=== PATIENT | male | born 1940 | race Caucasian/White ===

== ENCOUNTER 2017-10-29 12:04 | Emergency (ER) | payer MEDICARE, OTHER, SELFPAY ==
[2017-10-29] VITALS (14 sets, daily range): BP systolic 85–111; BP diastolic 40–83; PULSE 81–99; RESP 12–22; TEMP 35.7–36.9; O2SAT 95–100; BMI 30.7
[2017-10-29 12:24] LABS: Add Manual Diff / Slide Review NO; Basophils Percent Auto 0.6 % (0-2); Eosinophils Percent Auto 2.1 % (2-4); Hematocrit 39.3 % (41-53); Hemoglobin 13.4 g/dL (13.5-17.5); Lymphocytes Percent Auto 11.4 % (25-40); Mean Corpuscular HGB Conc 34.2 % (30-36); Mean Corpuscular Hemoglobin 32.4 PG (26-34); Mean Corpuscular Volume 94.8 fL (80-100); Monocytes Percent Auto 9.1 % (3-14); Neutrophils Absolute Auto 8300 /uL (3000-5900); Neutrophils Percent Auto 76.8 % (50-75); Platelet Count 228 X10^3/uL (150-400); Red Blood Cell Count 4.15 X10^6/uL (4.5-5.9); Red Cell Distribution Width 13.6 % (11.6-14.8); White Blood Cell Count 10.8 X10^3/uL (4.5-11.0)
[2017-10-29 12:29] LABS: PTT Partial Thromboplastin Tim 44 SECONDS (26.4-36.2)
[2017-10-29 12:30] LABS: Alanine Aminotransferase 41 IU/L (21-72); Albumin 3.5 g/dL (3.5-5.0); Albumin Globulin Ratio 1.3 (1.0-2.8); Alkaline Phosphatase 61 U/L (38-126); Aspartate Aminotransferase 21 IU/L (17-59); BUN Creatinine Ratio 19.1 (6-22); Bilirubin Total 0.8 mg/dL (0.2-1.3); Blood Urea Nitrogen 21 mg/dL (9-20); Calcium 8.5 mg/dL (8.4-10.2); Carbon Dioxide 29 mmol/L (22-32); Chloride 102 mmol/L (98-107); Creatine Kinase 58 U/L (55-170); Estimated Glomerular Filt Rate > 60.0 mL/min (>60); Globulin 2.7 g/dL (1.7-4.1); Glucose 148 mg/dL (80-110); HEMOLYSIS < 15 (0-50); Lipase 55 U/L (23-300); Potassium 4.3 mmol/L (3.4-5.1); Sodium 138 mmol/L (137-145); Total Protein 6.2 g/dL (6.3-8.2)
[2017-10-29 12:32] LABS: Prothrombin Time 53.5 SECONDS (10.1-12.7)
--- NOTE | 2017-10-29 12:39 | ED.SYNCOPE ---
HPI - Syncope General Chief Complaint: Syncope Stated Complaint: Abdominal Pain / Syncopal Time Seen by Provider: 10/29/17 12:52 Source: patient and EMS Mode of arrival: EMS Limitations: no limitations History of Present Illness HPI narrative: Patient is a 77-year-old male who presents with all syncopal episode at his doctor's office. He was initially being seen for left lower quadrant pain. The pain hurts every time he moves. It has been ongoing for the last 1 or 2 days. History he was able to mow the lawn but he was quickly fatigued. He has had some diarrhea but it is not bloody. On the doctor's office today a position of comfort with lying flat. At that time he got nauseous and vomited once. He then apparently passed out and had a shaking episode for about 15 sec. At no time did he lose consciousness nor was he postictal. He was sent to the ED for further evaluation. He denies any chest pain heart palpitations or fever. MD complaint: almost passed out Witnessed: yes - by bystander (Provider in [place]) Related Data Home Medications Medication Instructions Recorded Confirmed diltiazem HCl 1 cap PO DAILY 10/29/17 10/29/17 levobunolol 1 drp OPHTHALMIC (EYE) DAILY 10/29/17 10/29/17 levothyroxine 1 tab PO DAILY 10/29/17 10/29/17 lovastatin 20 mg PO QPM 10/29/17 10/29/17 metoprolol tartrate 25 mg PO BID 10/29/17 10/29/17 tamsulosin 0.8 mg PO QPM 10/29/17 10/29/17 warfarin [Jantoven] 1 mg PO QPM 10/29/17 10/29/17 warfarin [Jantoven] 5 mg PO QPM 10/29/17 10/29/17 Allergies Allergy/AdvReac Type Severity Reaction Status Date / Time No Known Drug Allergies Allergy Verified 10/29/17 12:14 Review of Systems Review of Systems All systems reviewed & are unremarkable except as noted in HPI and below Cardiovascular Reports as per HPI, Reports system reviewed and no additional complaints, except as docu and Reports syncope Gastrointestinal Gastrointestinal: Reports as per HPI, Reports system reviewed and no additional complaints, except as docu and Reports abdominal pain Musculoskeletal Denies back pain, Denies muscle weakness, Denies numbness and Denies tingling Integumentary/Breasts Denies pruritus, Denies erythema, Denies rash and Denies wounds Neurologic Reports syncope, Denies numbness and Denies tingling PFSH Medical History Atrial fibrillation (Acute) H/O partial thyroidectomy (Acute) High cholesterol (Acute) Surgical History History of left knee replacement (Acute) History of umbilical hernia repair (Acute) Social History Smoking Status: Former smoker Exam Initial Vital Signs Initial Vital Signs: Vital Signs Temperature 98.5 F 10/29/17 12:08 Pulse Rate 84 10/29/17 12:08 Respiratory Rate 18 10/29/17 12:08 Blood Pressure 107/80 10/29/17 12:08 Pulse Oximetry 99 10/29/17 12:08 Const General: cooperative and well developed Nutritional Appearance: well nourished Orientation: alert, awake, oriented x3 and not confused Resp Effort & Inspection: normal respiratory effort, able to speak in complete sentences, no respiratory distress and no use of accessory muscles Auscultation: clear to auscultation bilaterally, no rales, no rhonchi and no wheezes GI Palpation: tender (LLQ with guarding) Skin General: no rashes or lesions noted, No jaundice and No petechiae Neuro General: alert, awake, oriented x3 and normal light touch, pain and propioception Cranial Nerves: CN's II-XI intact bilaterally and facial strength normal Cognition: normal cognition Speech: speech normal Extrem General: full ROM, no clubbing, cyanosis or edema, no pedal edema and no calf tenderness Course Orders Ordered: ED Orders 10/29/17 12:10 Complete Blood Count AUTO DIFF Stat Comprehensive Metabolic Panel Stat Lipase Stat Partial Thromboplastin Time Stat Prothrombin Time INR Stat Troponin with CK Cardiac Panel Stat 10/29/17 12:15 EKG-12 Lead Stat 10/29/17 13:13 Lactate (Lactic Acid) Stat 10/29/17 13:40 CT abdomen pelvis w con Stat CT head/brain wo con Stat 10/29/17 14:31 Fresh Frozen Plasma Stat 10/29/17 15:08 Hemoglobin and Hematocrit Stat Prothrombin Time INR Stat 10/29/17 15:11 Fresh Frozen Plasma Stat Packed Cells Stat Type and Screen Stat 10/29/17 15:24 Packed Cells Stat Discontinued Medications Fentanyl (Sublimaze) 50 mcg IV NOW ONE Stop: 10/29/17 15:30 Last Admin: 10/29/17 15:30 Dose: 50 mcg Sodium Chloride (Normal Saline 0.9%) 1,000 mls @ 1,000 mls/hr IV BOLUS ONE Stop: 10/29/17 13:39 Last Infusion: 10/29/17 15:05 Dose: 0 mls/hr Admin: 10/29/17 13:04 Dose: 1,000 mls/hr Sodium Chloride (Normal Saline 0.9%) 1,000 mls @ 200 mls/hr IV CONT ZARA Last Infusion: 10/29/17 16:08 Dose: 200 mls/hr Admin: 10/29/17 14:33 Dose: 200 mls/hr Prothrombin Complex Concent ( Human) 3,500 unit/Miscellaneous 140 mls @ 8.4 mls/min IV NOW ONE Stop: 10/29/17 15:31 Last Infusion: 10/29/17 15:41 Dose: 0 mls/min Admin: 10/29/17 15:18 Dose: 8.4 mls/min Morphine Sulfate (Morphine) 2 mg IV NOW ONE Stop: 10/29/17 13:02 Last Admin: 10/29/17 13:05 Dose: 2 mg Morphine Sulfate (Morphine) 2 mg IV NOW ONE Stop: 10/29/17 14:22 Last Admin: 10/29/17 14:57 Dose: Morphine Sulfate (Morphine) 2 mg IV NOW ONE Stop: 10/29/17 14:46 Last Admin: 10/29/17 14:56 Dose: 2 mg Ondansetron HCl (Zofran) 4 mg IV NOW ONE Stop: 10/29/17 12:45 Last Admin: 10/29/17 13:06 Dose: 4 mg Phytonadione (Mephyton) 5 mg PO NOW ONE Stop: 10/29/17 14:32 Last Admin: 10/29/17 14:41 Dose: 5 mg Vital Signs - 8 hr 10/29/17 12:08 10/29/17 12:27 10/29/17 12:35 Temperature 98.5 F Pulse Rate 84 98 H 88 Respiratory Rate 18 12 18 Blood Pressure 107/80 Blood Pressure [Right Arm] 111/78 101/82 H Pulse Oximetry 99 98 10/29/17 13:00 10/29/17 13:52 06/14/18 14:15 Temperature Pulse Rate 99 H 81 95 H Respiratory Rate 20 Blood Pressure Blood Pressure [Right Arm] 86/64 L 104/74 110/83 H Pulse Oximetry 97 97 97 10/29/17 15:06 10/29/17 15:15 10/29/17 15:33 Temperature Pulse Rate 90 92 H 98 H Respiratory Rate 12 22 12 Blood Pressure Blood Pressure [Right Arm] 85/65 L 94/77 95/70 Pulse Oximetry 98 95 99 10/29/17 15:39 10/29/17 15:41 10/29/17 15:45 Temperature Pulse Rate 92 H 94 H 87 Respiratory Rate 18 12 16 Blood Pressure Blood Pressure [Right Arm] 88/71 L 97/65 104/73 Pulse Oximetry 100 97 97 10/29/17 15:49 10/29/17 15:56 Temperature 96.2 F L 96.2 F L Pulse Rate 98 H 99 H Respiratory Rate 17 18 Blood Pressure 104/73 100/40 L Blood Pressure [Right Arm] Pulse Oximetry MDM - Syncope Lab Data Result diagrams: 10/29/17 15:08 10/29/17 12:10 Lab Results 10/29/17 10/29/17 10/29/17 Range/Units 12:10 12:10 12:10 WBC 10.8 (4.5-11.0) X10^3/uL RBC 4.15 L (4.5-5.9) X10^6/uL Hgb 13.4 L (13.5-17.5) g/dL Hct 39.3 L (41-53) % MCV 94.8 (80-100) fL MCH 32.4 (26-34) PG MCHC 34.2 (30-36) % RDW 13.6 (11.6-14.8) % Plt Count 228 (150-400) X10^3/uL Neut % (Auto) 76.8 H (50-75) % Lymph % (Auto) 11.4 L (25-40) % Lynn % (Auto) 9.1 (3-14) % Eos % (Auto) 2.1 (2-4) % Baso % (Auto) 0.6 (0-2) % Neut # (Auto) 8300 H (9076-4790) /uL PT 53.5 H (10.1-12.7) SECONDS INR 5.0 H* (0.9-1.3) APTT 44 H (26.4-36.2) SECONDS Sodium 138 (137-145) mmol/L Potassium 4.3 (3.4-5.1) mmol/L Chloride 102 (98-107) mmol/L Carbon Dioxide 29 (22-32) mmol/L BUN 21 H (9-20) mg/dL Creatinine 1.10 (0.66-1.25) mg/dL Estimated GFR > 60.0 (>60) mL/min BUN/Creatinine Ratio 19.1 (6-22) Glucose 148 H (80-110) mg/dL Lactate (0.7-2.1) mmol/L Calcium 8.5 (8.4-10.2) mg/dL Total Bilirubin 0.8 (0.2-1.3) mg/dL AST 21 (17-59) IU/L ALT 41 (21-72) IU/L Alkaline Phosphatase 61 (38-126) U/L Total Creatine Kinase 58 (55-170) U/L Troponin I < 0.012 (0.01-0.034) ng/mL Total Protein 6.2 L (6.3-8.2) g/dL Albumin 3.5 (3.5-5.0) g/dL Globulin 2.7 (1.7-4.1) g/dL Albumin/Globulin Ratio 1.3 (1.0-2.8) Lipase 55 (23-300) U/L Blood Type Rho(D) Type Antibody Screen Crossmatch 10/29/17 10/29/17 10/29/17 Range/Units 13:13 13:13 14:31 WBC (4.5-11.0) X10^3/uL RBC (4.5-5.9) X10^6/uL Hgb (13.5-17.5) g/dL Hct (41-53) % MCV (80-100) fL MCH (26-34) PG MCHC (30-36) % RDW (11.6-14.8) % Plt Count (150-400) X10^3/uL Neut % (Auto) (50-75) % Lymph % (Auto) (25-40) % Lynn % (Auto) (3-14) % Eos % (Auto) (2-4) % Baso % (Auto) (0-2) % Neut # (Auto) (1539-1554) /uL PT (10.1-12.7) SECONDS INR (0.9-1.3) APTT (26.4-36.2) SECONDS Sodium (137-145) mmol/L Potassium (3.4-5.1) mmol/L Chloride (98-107) mmol/L Carbon Dioxide (22-32) mmol/L BUN (9-20) mg/dL Creatinine (0.66-1.25) mg/dL Estimated GFR (>60) mL/min BUN/Creatinine Ratio (6-22) Glucose (80-110) mg/dL Lactate 1.1 (0.7-2.1) mmol/L Calcium (8.4-10.2) mg/dL Total Bilirubin (0.2-1.3) mg/dL AST (17-59) IU/L ALT (21-72) IU/L Alkaline Phosphatase (38-126) U/L Total Creatine Kinase (55-170) U/L Troponin I (0.01-0.034) ng/mL Total Protein (6.3-8.2) g/dL Albumin (3.5-5.0) g/dL Globulin (1.7-4.1) g/dL Albumin/Globulin Ratio (1.0-2.8) Lipase (23-300) U/L Blood Type Cancelled Cancelled Rho(D) Type Cancelled Antibody Screen Cancelled Crossmatch 10/29/17 10/29/17 10/29/17 Range/Units 15:08 15:08 15:11 WBC (4.5-11.0) X10^3/uL RBC (4.5-5.9) X10^6/uL Hgb 12.1 L (13.5-17.5) g/dL Hct 34.9 L (41-53) % MCV (80-100) fL MCH (26-34) PG MCHC (30-36) % RDW (11.6-14.8) % Plt Count (150-400) X10^3/uL Neut % (Auto) (50-75) % Lymph % (Auto) (25-40) % Lynn % (Auto) (3-14) % Eos % (Auto) (2-4) % Baso % (Auto) (0-2) % Neut # (Auto) (8888-2179) /uL PT 59.3 H D (10.1-12.7) SECONDS INR 5.5 H* (0.9-1.3) APTT (26.4-36.2) SECONDS Sodium (137-145) mmol/L Potassium (3.4-5.1) mmol/L Chloride (98-107) mmol/L Carbon Dioxide (22-32) mmol/L BUN (9-20) mg/dL Creatinine (0.66-1.25) mg/dL Estimated GFR (>60) mL/min BUN/Creatinine Ratio (6-22) Glucose (80-110) mg/dL Lactate (0.7-2.1) mmol/L Calcium (8.4-10.2) mg/dL Total Bilirubin (0.2-1.3) mg/dL AST (17-59) IU/L ALT (21-72) IU/L Alkaline Phosphatase (38-126) U/L Total Creatine Kinase (55-170) U/L Troponin I (0.01-0.034) ng/mL Total Protein (6.3-8.2) g/dL Albumin (3.5-5.0) g/dL Globulin (1.7-4.1) g/dL Albumin/Globulin Ratio (1.0-2.8) Lipase (23-300) U/L Blood Type O Positive Rho(D) Type Antibody Screen Negative Crossmatch See Detail Imaging Data CT scan - abdomen: Radiologist's impression: PROCEDURE: CT ABDOMEN PELVIS W CON INDICATIONS: left lower quad pain TECHNIQUE: After the administration of oral and intravenous contrast, 5 mm thick sections acquired from the diaphragms to the symphysis. 5 mm thick coronal and sagittal reformats were performed. For radiation dose reduction, the following was used: automated exposure control, adjustment of mA and/or kV according to patient size. COMPARISON: None. FINDINGS: Image quality: diagnostic. ABDOMEN: Lung bases: Mild basilar atelectasis is present. Heart size is normal. Coronary artery atherosclerosis is noted. Solid organs: The liver is normal in size. There are multiple hypodense lesions identified scattered throughout the liver ranging in size from approximately 5 mm to 27 mm, which demonstrates similar imaging characteristics with a density value of roughly 0. No definite solid hepatic lesions are appreciated. However, the smaller lesions are not adequately characterized. The spleen, and adrenals are within normal limits. The pancreas is unremarkable. The right kidney is within normal limits. The left kidney is enlarged and markedly abnormal with apparent multiple fluid levels and areas of increased density, highly suggestive of a hemorrhage. There is a small focus of increased density identified along the anterior aspect of the kidney (image 49, series 2), which may represent active extravasation versus a normal vessel. This area of hemorrhage is predominantly seen along the capsular margin of the inferior aspect of the kidney and it measures at least 11.1 x 7.9 cm. However, there also is a rounded area of heterogeneous density identified on the upper pole of the right kidney that measures 8.1 x 7.8 cm (image 25, series 4). Given the degree of heterogeneity of the kidney, the possibility of a subtle mass is difficult to exclude. There is prominent perinephric edema identified. No definitive hydronephrosis is evident. The left ureter appears to be normal in course and caliber. Peritoneum and bowel: The stomach, duodenum and remainder of the small bowel loops are nondilated. The colon is essentially unremarkable with the exception of colonic diverticulosis. No bowel obstruction or diverticulitis is evident. There may be a small amount of free fluid within the left paracolic gutter. There is no loculated fluid collection or free air. Nodes and vessels: No retroperitoneal or mesenteric adenopathy. Aorta and inferior vena cava are normal in caliber. There is aortic atherosclerosis. Miscellaneous: Multilevel degenerative changes of the spine are present. There is grade 1 anterolisthesis of L4 and L5. No acute fractures are evident. PELVIS: Genitourinary: The prostate is enlarged and measures up to approximately 5.9 x 6.0 cm. Moderate thickening of the wall of the urinary bladder is present. Miscellaneous: No inguinal hernias or adenopathy. Bones: No suspicious bony lesions. No acute pelvic fractures are identified. Mild degenerative changes of the sacral iliac joints and bilateral hips are noted. IMPRESSION: 1. Large left renal hemorrhage with possible active extravasation versus a normal vessel or an inferior margin of the kidney. A superimposed renal mass likely is present. While a superimposed infection is felt to be unlikely, an infectious process and may have this appearance. An ultrasound or contrast-enhanced MRI may be helpful to evaluate for possible renal mass. 2. No lymphadenopathy or evidence of metastatic disease. 3. No bowel obstruction. 4. Marked enlargement of the prostate with thickening of the urinary bladder wall. Please correlate clinically for possible chronic bladder obstruction. CT scan - head: Radiologist's impression: INDICATIONS: supra therapeutic INR with syncope TECHNIQUE: Noncontrast 4.5 mm thick angled axial sections acquired from the foramen magnum to the vertex, with coronal and sagittal reformats. For radiation dose reduction, the following was used: automated exposure control, adjustment of mA and/or kV according to patient size. COMPARISON: None. FINDINGS: Image quality: Excellent. CSF spaces: Basal cisterns are patent. No extra-axial fluid collections. The ventricles are symmetric in size and shape. Brain: No intracranial bleeds or masses. There is cerebral volume loss for age, with resultant ventricular and sulcal prominence. There are periventricular and deep white matter chronic small vessel ischemic changes. There is intracranial internal carotid artery atherosclerosis. Skull and face: Calvarium and visualized facial bones appear intact, without suspicious lesions. Sinuses: Visualized sinuses and mastoids are clear. IMPRESSION: Negative for acute intracranial hemorrhage. Note is made of age-appropriate brain parenchymal volume loss and chronic small vessel ischemic changes. Dictated by: Pillo oPllack M.D. on 10/29/2017 at 13:10 MDM Narrative Medical decision making narrative: The patient initial blood pressure was slightly low at has slowly decreased. He is given more IV fluids. Blood pressure improved. He has never tachycardic. He still has not urinated due to [address] returned as large left renal hemorrhage probably from a mass. His blood pressure again started declining. K centra, vitamin K have been given. Uncrossed blood has been ordered and started. Patient remained awake alert. He continues to have pain and discomfort in his left lower quadrant. FFP ordered. [place] of doctor Morales the trauma physician has been updated patient's symptoms and test results happily we and graciously accepts patient for transfer. Patient will be going by airlift. Critical Care Time Critical Care Time: Yes Total Critical Care Time: 60 Attestation: The patient satisfied the definition of criticality in that they had a high probability of imminent deterioration of their conditon. Critical care time includes time spent at the bedside, plus where appropriate: gathering information from family, EMS, old records, caregivers; interpretation of test results; and time spent discussing patient with other physicians Discharge Plan Departure Patient Disposition: [facility] Clinical Impression: Renal hemorrhage, left Discharge Date/Time: 10/29/17 16:05 Interventions: ED Discharge Assessment Last Done: 10/29/17 16:16 Prescriptions: No Action levobunolol 0.5 % drops 1 drp ophthalmic (eye) DAILY RF: 0 tamsulosin 0.4 mg capsule,extended release 24hr 0.8 mg PO QPM RF: 0 levothyroxine 125 mcg tablet 1 tab PO DAILY RF: 0 warfarin [Jantoven] 5 mg tablet 5 mg PO QPM RF: 0 diltiazem HCl 120 mg capsule,extended release 24hr 1 cap PO DAILY RF: 0 warfarin [Jantoven] 1 mg tablet 1 mg PO QPM RF: 0 lovastatin 20 mg tablet 20 mg PO QPM RF: 0 metoprolol tartrate 25 mg tablet 25 mg PO BID RF: 0
[2017-10-29 12:55] LABS: Troponin I < 0.012 ng/mL (0.01-0.034)
[2017-10-29] MEDS: SODIUM CHLORIDE 0.9% 1,000 ML 1000 ML IV (13:04)
[2017-10-29] MEDS: MORPHINE 4 MG/ML INJ 2 MG IV ×2 (13:05→14:56)
[2017-10-29] MEDS: ONDANSETRON 4 MG/2 ML INJ IV (13:06)
[2017-10-29 13:38] LABS: Lactate (Lactic Acid) 1.1 mmol/L (0.7-2.1)
--- NOTE | 2017-10-29 13:40 | DI.CT.S_ITS ---
PROCEDURE: CT HEAD/BRAIN WO CON INDICATIONS: supra therapeutic INR with syncope TECHNIQUE: Noncontrast 4.5 mm thick angled axial sections acquired from the foramen magnum to the vertex, with coronal and sagittal reformats. For radiation dose reduction, the following was used: automated exposure control, adjustment of mA and/or kV according to patient size. COMPARISON: None. FINDINGS: Image quality: Excellent. CSF spaces: Basal cisterns are patent. No extra-axial fluid collections. The ventricles are symmetric in size and shape. Brain: No intracranial bleeds or masses. There is cerebral volume loss for age, with resultant ventricular and sulcal prominence. There are periventricular and deep white matter chronic small vessel ischemic changes. There is intracranial internal carotid artery atherosclerosis. Skull and face: Calvarium and visualized facial bones appear intact, without suspicious lesions. Sinuses: Visualized sinuses and mastoids are clear. IMPRESSION: Negative for acute intracranial hemorrhage. Note is made of age-appropriate brain parenchymal volume loss and chronic small vessel ischemic changes. Dictated by: Pillo Pollack M.D. on 10/29/2017 at 13:10 Approved by: Pillo Pollack M.D. on 10/29/2017 at 13:11
--- NOTE | 2017-10-29 13:40 | DI.CT.S_ITS ---
PROCEDURE: CT ABDOMEN PELVIS W CON INDICATIONS: left lower quad pain TECHNIQUE: After the administration of oral and intravenous contrast, 5 mm thick sections acquired from the diaphragms to the symphysis. 5 mm thick coronal and sagittal reformats were performed. For radiation dose reduction, the following was used: automated exposure control, adjustment of mA and/or kV according to patient size. COMPARISON: None. FINDINGS: Image quality: diagnostic. ABDOMEN: Lung bases: Mild basilar atelectasis is present. Heart size is normal. Coronary artery atherosclerosis is noted. Solid organs: The liver is normal in size. There are multiple hypodense lesions identified scattered throughout the liver ranging in size from approximately 5 mm to 27 mm, which demonstrates similar imaging characteristics with a density value of roughly 0. No definite solid hepatic lesions are appreciated. However, the smaller lesions are not adequately characterized. The spleen, and adrenals are within normal limits. The pancreas is unremarkable. The right kidney is within normal limits. The left kidney is enlarged and markedly abnormal with apparent multiple fluid levels and areas of increased density, highly suggestive of a hemorrhage. There is a small focus of increased density identified along the anterior aspect of the kidney (image 49, series 2), which may represent active extravasation versus a normal vessel. This area of hemorrhage is predominantly seen along the capsular margin of the inferior aspect of the kidney and it measures at least 11.1 x 7.9 cm. However, there also is a rounded area of heterogeneous density identified on the upper pole of the right kidney that measures 8.1 x 7.8 cm (image 25, series 4). Given the degree of heterogeneity of the kidney, the possibility of a subtle mass is difficult to exclude. There is prominent perinephric edema identified. No definitive hydronephrosis is evident. The left ureter appears to be normal in course and caliber. Peritoneum and bowel: The stomach, duodenum and remainder of the small bowel loops are nondilated. The colon is essentially unremarkable with the exception of colonic diverticulosis. No bowel obstruction or diverticulitis is evident. There may be a small amount of free fluid within the left paracolic gutter. There is no loculated fluid collection or free air. Nodes and vessels: No retroperitoneal or mesenteric adenopathy. Aorta and inferior vena cava are normal in caliber. There is aortic atherosclerosis. Miscellaneous: Multilevel degenerative changes of the spine are present. There is grade 1 anterolisthesis of L4 and L5. No acute fractures are evident. PELVIS: Genitourinary: The prostate is enlarged and measures up to approximately 5.9 x 6.0 cm. Moderate thickening of the wall of the urinary bladder is present. Miscellaneous: No inguinal hernias or adenopathy. Bones: No suspicious bony lesions. No acute pelvic fractures are identified. Mild degenerative changes of the sacral iliac joints and bilateral hips are noted. IMPRESSION: 1. Large left renal hemorrhage with possible active extravasation versus a normal vessel or an inferior margin of the kidney. A superimposed renal mass likely is present. While a superimposed infection is felt to be unlikely, an infectious process and may have this appearance. An ultrasound or contrast-enhanced MRI may be helpful to evaluate for possible renal mass. 2. No lymphadenopathy or evidence of metastatic disease. 3. No bowel obstruction. 4. Marked enlargement of the prostate with thickening of the urinary bladder wall. Please correlate clinically for possible chronic bladder obstruction. Note: Discussed with Dr. Zepeda at 1425 hours (PST) on 10/29/17. Dictated by: Calvin Aannd M.D. on 10/29/2017 at 13:15 Approved by: Calvin Anand M.D. on 10/29/2017 at 13:33
--- NOTE | 2017-10-29 14:29 | ED.SYNCOPE ---
HPI - Syncope General Chief Complaint: Syncope Stated Complaint: Abdominal Pain / Syncopal Time Seen by Provider: 10/29/17 12:52 Source: patient and EMS Mode of arrival: EMS Limitations: no limitations History of Present Illness MD complaint: almost passed out Related Data Home Medications Medication Instructions Recorded Confirmed diltiazem HCl 1 cap PO DAILY 10/29/17 10/29/17 levobunolol 1 drp OPHTHALMIC (EYE) DAILY 10/29/17 10/29/17 levothyroxine 1 tab PO DAILY 10/29/17 10/29/17 lovastatin 20 mg PO QPM 10/29/17 10/29/17 metoprolol tartrate 25 mg PO BID 10/29/17 10/29/17 tamsulosin 0.8 mg PO QPM 10/29/17 10/29/17 warfarin [Jantoven] 1 mg PO QPM 10/29/17 10/29/17 warfarin [Jantoven] 5 mg PO QPM 10/29/17 10/29/17 Allergies Allergy/AdvReac Type Severity Reaction Status Date / Time No Known Drug Allergies Allergy Verified 10/29/17 12:14 Review of Systems Cardiovascular Reports syncope Musculoskeletal Denies numbness and Denies tingling Neurologic Reports syncope, Denies numbness and Denies tingling [facility], [facility] Social History Smoking Status: Former smoker Exam Initial Vital Signs Initial Vital Signs: Vital Signs Temperature 98.5 F 10/29/17 12:08 Pulse Rate 84 10/29/17 12:08 Respiratory Rate 18 10/29/17 12:08 Blood Pressure 107/80 10/29/17 12:08 Pulse Oximetry 99 10/29/17 12:08 Scores PERC Score Age greater than or equal to 50 years: Yes Heart rate greater than or equal to 100 bpm: Yes Room Air O2 Sat less than 95%: Yes Unilateral leg swelling: Yes Hemoptysis: Yes Recent trauma or surgery: Yes Prior PE or DVT: Yes Hormone Use: Yes Total PERC Score: 0 Course Orders Ordered: ED Orders 10/29/17 12:10 Complete Blood Count AUTO DIFF Stat Comprehensive Metabolic Panel Stat Lipase Stat Partial Thromboplastin Time Stat Prothrombin Time INR Stat Troponin with CK Cardiac Panel Stat 10/29/17 12:15 EKG-12 Lead Stat 10/29/17 13:13 Lactate (Lactic Acid) Stat 10/29/17 13:40 CT abdomen pelvis w con Stat CT head/brain wo con Stat Sodium Chloride (Normal Saline 0.9%) 1,000 mls @ 200 mls/hr IV CONT ZARA Discontinued Medications Sodium Chloride (Normal Saline 0.9%) 1,000 mls @ 1,000 mls/hr IV BOLUS ONE Stop: 10/29/17 13:39 Last Admin: 10/29/17 13:04 Dose: 1,000 mls/hr Morphine Sulfate (Morphine) 2 mg IV NOW ONE Stop: 10/29/17 13:02 Last Admin: 10/29/17 13:05 Dose: 2 mg Morphine Sulfate (Morphine) 2 mg IV NOW ONE Stop: 10/29/17 14:22 Ondansetron HCl (Zofran) 4 mg IV NOW ONE Stop: 10/29/17 12:45 Last Admin: 10/29/17 13:06 Dose: 4 mg Vital Signs - 8 hr 10/29/17 12:08 10/29/17 12:27 10/29/17 12:35 Temperature 98.5 F Pulse Rate 84 98 H 88 Respiratory Rate 18 12 18 Blood Pressure 107/80 Blood Pressure [Right Arm] 111/78 101/82 H Pulse Oximetry 99 98 10/29/17 13:00 10/29/17 13:52 Temperature Pulse Rate 99 H 81 Respiratory Rate 20 Blood Pressure Blood Pressure [Right Arm] 86/64 L 104/74 Pulse Oximetry 97 97 MDM - Syncope Lab Data Result diagrams: 10/29/17 12:10 10/29/17 12:10 Lab Results 10/29/17 10/29/17 10/29/17 Range/Units 12:10 12:10 12:10 WBC 10.8 (4.5-11.0) X10^3/uL RBC 4.15 L (4.5-5.9) X10^6/uL Hgb 13.4 L (13.5-17.5) g/dL Hct 39.3 L (41-53) % MCV 94.8 (80-100) fL MCH 32.4 (26-34) PG MCHC 34.2 (30-36) % RDW 13.6 (11.6-14.8) % Plt Count 228 (150-400) X10^3/uL Neut % (Auto) 76.8 H (50-75) % Lymph % (Auto) 11.4 L (25-40) % [place] % (Auto) 9.1 (3-14) % Eos % (Auto) 2.1 (2-4) % Baso % (Auto) 0.6 (0-2) % Neut # (Auto) 8300 H (5129-5616) /uL PT 53.5 H (10.1-12.7) SECONDS INR 5.0 H* (0.9-1.3) APTT 44 H (26.4-36.2) SECONDS Sodium 138 (137-145) mmol/L Potassium 4.3 (3.4-5.1) mmol/L Chloride 102 (98-107) mmol/L Carbon Dioxide 29 (22-32) mmol/L BUN 21 H (9-20) mg/dL Creatinine 1.10 (0.66-1.25) mg/dL Estimated GFR > 60.0 (>60) mL/min BUN/Creatinine Ratio 19.1 (6-22) Glucose 148 H (80-110) mg/dL Lactate (0.7-2.1) mmol/L Calcium 8.5 (8.4-10.2) mg/dL Total Bilirubin 0.8 (0.2-1.3) mg/dL AST 21 (17-59) IU/L ALT 41 (21-72) IU/L Alkaline Phosphatase 61 (38-126) U/L Total Creatine Kinase 58 (55-170) U/L Troponin I < 0.012 (0.01-0.034) ng/mL Total Protein 6.2 L (6.3-8.2) g/dL Albumin 3.5 (3.5-5.0) g/dL Globulin 2.7 (1.7-4.1) g/dL Albumin/Globulin Ratio 1.3 (1.0-2.8) Lipase 55 (23-300) U/L // Range/Units 13:13 WBC (4.5-11.0) X10^3/uL RBC (4.5-5.9) X10^6/uL Hgb (13.5-17.5) g/dL Hct (41-53) % MCV (80-100) fL MCH (26-34) PG MCHC (30-36) % RDW (11.6-14.8) % Plt Count (150-400) X10^3/uL Neut % (Auto) (50-75) % Lymph % (Auto) (25-40) % [place] % (Auto) (3-14) % Eos % (Auto) (2-4) % Baso % (Auto) (0-2) % Neut # (Auto) (7472-6578) /uL PT (10.1-12.7) SECONDS INR (0.9-1.3) APTT (26.4-36.2) SECONDS Sodium (137-145) mmol/L Potassium (3.4-5.1) mmol/L Chloride (98-107) mmol/L Carbon Dioxide (22-32) mmol/L BUN (9-20) mg/dL Creatinine (0.66-1.25) mg/dL Estimated GFR (>60) mL/min BUN/Creatinine Ratio (6-22) Glucose (80-110) mg/dL Lactate 1.1 (0.7-2.1) mmol/L Calcium (8.4-10.2) mg/dL Total Bilirubin (0.2-1.3) mg/dL AST (17-59) IU/L ALT (21-72) IU/L Alkaline Phosphatase (38-126) U/L Total Creatine Kinase (55-170) U/L Troponin I (0.01-0.034) ng/mL Total Protein (6.3-8.2) g/dL Albumin (3.5-5.0) g/dL Globulin (1.7-4.1) g/dL Albumin/Globulin Ratio (1.0-2.8) Lipase (23-300) U/L Discharge Plan Departure Prescriptions: No Action levobunolol 0.5 % drops 1 drp ophthalmic (eye) DAILY RF: 0 tamsulosin 0.4 mg capsule,extended release 24hr 0.8 mg PO QPM RF: 0 levothyroxine 125 mcg tablet 1 tab PO DAILY RF: 0 warfarin [Jantoven] 5 mg tablet 5 mg PO QPM RF: 0 diltiazem HCl 120 mg capsule,extended release 24hr 1 cap PO DAILY RF: 0 warfarin [Jantoven] 1 mg tablet 1 mg PO QPM RF: 0 lovastatin 20 mg tablet 20 mg PO QPM RF: 0 metoprolol tartrate 25 mg tablet 25 mg PO BID RF: 0
[2017-10-29] MEDS: SODIUM CHLORIDE 0.9% 1,000 ML 200 ML IV (14:33)
[2017-10-29] MEDS: PHYTONADIONE (VIT K1) 5 MG TABLET PO (14:41)
[2017-10-29] MEDS: PROTHROMBIN CPLX(PCC)4FACT 3,500 UNIT in ISOOSMOTIC VEHICLE 0 ML 8.4 ML IV (15:18)
[2017-10-29 15:20] LABS: Hematocrit 34.9 % (41-53); Hemoglobin 12.1 g/dL (13.5-17.5)
[2017-10-29] MEDS: fentaNYL 100 MCG/2 ML INJ 50 MCG IV (15:30)
[2017-10-29 15:31] LABS: Prothrombin Time 59.3 SECONDS (10.1-12.7)
[2017-10-29 15:35] LABS: INR 5.5 (0.9-1.3)
--- NOTE | 2017-10-29 16:11 | PC.NURSE ---
FFP and 1st unit of PRBCs both sent w/ airlift, continued to infuse upon transfer.
== END 2017-10-29 16:05 | disposition short-term general hospital (02) ==
PROVIDERS: Emergency Provider Emergency Medicine; Family Provider Physician Assistant; PCP Physician Assistant
DX: N28.89 Other specified disorders of kidney and ureter (principal); R55 Syncope and collapse
CPT/HCPCS: 36415; 36430; 36591; 51701; 51798; 70450; 74177; 80053; 81003; 82550; 82553; 82962; 83605; 83690; 84484; 85014; 85018; 85025; 85610; 85730; 86850; 86900; 86901; 86927; 93005; 96361; 96365; 96375; 99285; P9016; P9017; C9132; J2270; J2405; J3010; Q9967

== ENCOUNTER → 2019-01-25 07:39 | Outpatient (CLI) | payer MEDICARE, OTHER, SELFPAY ==
--- NOTE | 2019-01-25 | DI.MRI.S_ITS ---
PROCEDURE: MR LUMBAR SPINE WO CON INDICATIONS: LUMBAR PAIN TECHNIQUE: Noncontrast sagittal T1 spin echo and T2 fast echo, sagittal STIR, axial T1 and T2 fast spin echo through the lumbar spine. In cases with scoliosis, additional coronal T2 fast spin echo may be performed. COMPARISON: [facility], CR, XR LUMBAR SPINE 2 OR 3 VIEWS, 03/17/2018, 12:11. [facility], CR, XR LUMBAR SPINE 2 OR 3 VIEWS, 04/01/2018, 9:00. FINDINGS: Image quality: Excellent. Alignment and Curvature: There is trace L1-L2 and L2-L3 retrolisthesis. There is mild L4-L5 anterolisthesis. Bone Marrow: Mild reactive endplate changes noted adjacent to the L1-L2, L2-L3, L4-L5 and L5-S1 disc. No acute vertebral body compression fractures. Spinal Cord: Conus medullaris terminates at the L1 level. Visualized cord demonstrates normal signal and size. Paraspinous Soft Tissues: No paravertebral masses. L1-L2: Loss of disc signal and height. Mild, diffuse disc bulge. Mild bilateral facet hypertrophy. Mild narrowing of the central canal. Mild bilateral neural foraminal narrowing. No neural compression. L2-L3: Loss of disc signal and slight loss of disc height. Mild, diffuse disc bulge. Mild to moderate facet hypertrophy. Mild to moderate narrowing of the central canal. Mild to moderate bilateral neural foraminal narrowing. No neural compression. L3-L4: Loss of disc signal and slight loss of disc height. Mild to moderate diffuse disc bulge. Moderate facet hypertrophy. Moderate narrowing of the central canal. Moderate bilateral neural foraminal narrowing. No neural compression. L4-L5: Loss of disc signal. Mild, diffuse disc bulge. Severe facet and ligamentum flavum hypertrophy. Severe narrowing of the central canal with compression of the nerve roots of the cauda equina. Severe bilateral neural foraminal narrowing with compression of the exiting L4 nerve roots. L5-S1: Loss of disc signal and height. Mild, diffuse disc bulge. Mild right and moderate left facet hypertrophy. Mild narrowing of the central canal. Moderate to severe right and severe left neural foraminal narrowing with compression of the exiting L5 nerve roots. IMPRESSION: 1. Multilevel degenerative disc disease. 2. Multilevel facet arthropathy. 3. Severe L4-L5 central canal stenosis. Moderate L3-L4 central canal narrowing. Mild to moderate L2-L3 central canal narrowing. Mild L1-L2 and L5-S1 central canal. 4. Severe bilateral L4-L5 neural foraminal narrowing. Moderate to severe right and severe left L5-S1 neural foraminal narrowing. Moderate bilateral L3-L4 neural foraminal narrowing. Mild to moderate bilateral L2-L3 neural foraminal narrowing. Mild bilateral L1-L2 neural foraminal narrowing. 5. Compression of the nerve roots of cauda equina at the level of the L4-L5 disc secondary to central canal stenosis. 6. Compression of the exiting bilateral L4 nerve roots and the exiting bilateral L5 nerve root secondary to neural foraminal narrowing. Dictated by: Elisha Wolf MD, PhD on 01/25/2019 at 16:12 Approved by: Elisha Wolf MD, PhD on 01/25/2019 at 16:19
== END ==
PROVIDERS: PCP Internal Medicine; Visit Provider Internal Medicine
DX: M54.5 Low back pain (principal); M43.16 Spondylolisthesis, lumbar region; M51.36 Other intervertebral disc degeneration, lumbar region; M51.37 Other intervertebral disc degeneration, lumbosacral region; M47.816 Spondylosis without myelopathy or radiculopathy, lumbar region; M47.817 Spondylosis without myelopathy or radiculopathy, lumbosacral region; M48.061 Spinal stenosis, lumbar region without neurogenic claudication; M48.07 Spinal stenosis, lumbosacral region
CPT/HCPCS: 72148

== ENCOUNTER 2019-04-28 09:17 | Outpatient (CLI) | payer MEDICARE, OTHER, SELFPAY ==
[2019-04-28] VITALS (7 sets, daily range): BP systolic 120–148; BP diastolic 58–97; PULSE 69–112; RESP 15–18; TEMP 36.9; O2SAT 94–100
--- NOTE | 2019-04-28 09:19 | DI.RAD.S_ITS ---
PROCEDURE: PAIN L/S FACET INJ/BLK 1ST EMMETT COMPARISON: None. INDICATIONS: SPONDYLOSIS FINDINGS: 6 intraoperative fluoroscopy images demonstrate needle placement at L3-L4 and L4-L5 facet joints bilaterally. IMPRESSION: Fluoroscopy for pain management. Dictated by: Wes Faye M.D. on 04/28/2019 at 11:28 Approved by: Wes Faye M.D. on 04/28/2019 at 11:29
--- NOTE | 2019-04-28 10:42 | PC.NURSE ---
DR ELLER AWARE OF TACHYCARDIA AND A-FIB. PT HAS HX OF BOTH CHRONIC AFIB AND TACHYCARDIA. NO NEW ORDERS AT THIS TIME.
[2019-04-28] MEDS: MIDAZOLAM 5 MG/5 ML VIAL IV (10:44)
[2019-04-28] MEDS: fentaNYL 100 MCG/2 ML INJ 50 MCG IV (10:44)
[2019-04-28] MEDS: IOPAMIDOL 15 ML VIAL 3 ML INJ (10:45)
[2019-04-28] MEDS: BUPIVACAINE 0.5% (PF) VIAL 2 ML INJ (10:46)
[2019-04-28] MEDS: BETAMETHASONE 30 MG/5 ML MDV 12 MG INJ (10:46)
[2019-04-28] MEDS: LIDOCAINE 1% 20 ML 10 ML INJ (10:46)
--- NOTE | 2019-04-28 10:52 | PC.NURSE ---
ASSISTING PT OFF TABLE AND TRANSPORTING TO POST PROC AREA IN STABLE CONDITION. PASSING RN CARE OF PT OFF TO RENÉE Wayne RN. VERSED AND FENTANYL PREPARED AND ADMINISTERED BY THIS RN. ALL OTHER MEDS PREPARED AND ADMINISTERED BY DR. ELLER.
--- NOTE | 2019-04-28 10:58 | P.PCN_ITS ---
Procedures Date/Time Date of procedure: 04/28/19 Time of procedure: 10:58 General Procedure description: PREOP DIAGNOSIS 1. FACET ARTHROPATHY 2. AXIAL LBP 3. MULTILEVEL DDD POST OP DIAGNOSIS 1. FACET ARTHROPATHY 2. AXIAL LBP 3. MULTILEVEL DDD PROCEDURES 1. FLUORSCOPICALLY GUIDED CONTRAST CONTROLLED FACET JOINT INJECTIONS BILATERAL L3/4, L4/5 PHYSICIAN: Chauncey Malin DO INDICATIONS: Artemio is referred by Dr. Montejo for treatment of Axial LBP FINDINGS Multilevel Facet Arthropathy with Clinically significant axial LBP DESCRIPTION OF PROCEDURE Fluoroscopically guided, contrast-controlled bilateral L3/4, L4/5 facet joint injections. Following review of allergy and review of potential side effects and complications, including, but not necessarily limited to, infection, allergic reaction, local tissue breakdown, stroke, temporary or permanent nerve injury, paralysis, and possible , the patient indicated that the patient understood and agreed to proceed. An informed consent document was signed by the patient, witnessed by a nurse, and placed in the patient's chart. Additionally, other treatment options including medications, modalities, and physical therapy were reviewed with the patient. After review of previous anaesthesic history and IV conscious sedation the patient was deemed safe to proceed with todays procedure with IV conscious sedation as ASA class II designation. Safety time-out was performed to confirm patient ID, procedure to be performed and site of procedure. IV sedation was accomplished with a combination of 2mg of Versed and 50mcg of Fentanyl was administered by the RN after DO order, titrated to patient comfort during the course of the procedure while the patient remained responsive to all verbal commands. In the prone position, following sterile prep and drape of the lumbar region, the posterior aspect of the L3/4, L4/5 facet joints were identified fluoroscopically. The skin was anesthetized via a 25-gauge 1.5-inch needle with 1% lidocaine solution into the corresponding facet joints. At this point, a 22- gauge 3.5-inch spinal needle was atraumatically introduced and advanced under fluoroscopic guidance into the corresponding facet joints. Following negative aspiration, injections of approximately 0.2-cc of Isovue 200 confirmed interarticular placement without vascular uptake. The identical procedure was then performed at the L3/4, L4/5 facet joints on the left. Radiological data, including multiple fluoroscopic views of the lumbosacral spine, reveal a spinal needle at the L3/4, L4/5 facet joints bilaterally. Subsequent views show flow of contrast material both superiorly and inferiorly within the joint space without vascular or intrathecal uptake. At this point, a total of 0.5cc including a mixture of 0.25cc Marcaine and 0.25cc betamethasone was injected without complication into each of the corresponding facet joints. The patient tolerated the procedure well without signs or symptoms of complications prior to transfer to the recovery area continued monitoring without incident. The patient was then transferred to the recovery area where they were observed for an appropriate period of time after the injection. The patient reported a VAS score of 7 prior to the procedure and a post-procedure VAS of 0. Total Fluoroscopy Time: 20.3 seconds Total Conscious Sedation Time: 24min POST OP INSTRUCTIONS The patient was provided a Pain Log to continue to record their response to the target-specific procedure prior to follow-up visit with their referring physician. Additionally, specific post-injection care instructions and a contact number to our office were provided if concerns arise regarding possible complications associated with the procedure are suspected. Chauncey Malin DO Complications: none
== END 2019-04-28 11:35 | disposition home or self-care (01) ==
LOC: RAD 09:19
PROVIDERS: Family Provider Internal Medicine; PCP Internal Medicine; Visit Provider Physical Medicine & Rehabilitation
DX: M47.816 Spondylosis without myelopathy or radiculopathy, lumbar region (principal); M54.5 Low back pain; M51.36 Other intervertebral disc degeneration, lumbar region
CPT/HCPCS: 64493; 64494; 99152; J0702; J2250; J3010

== ENCOUNTER → 2019-10-28 19:28 | Outpatient (ROUT) | payer MEDICARE, OTHER, SELFPAY ==
[2019-10-28 19:52] LABS: Alanine Aminotransferase 33 IU/L (<50); Albumin 3.9 g/dL (3.5-5.0); Albumin Globulin Ratio 1.4 (1.0-2.8); Alkaline Phosphatase 78 U/L (38-126); Aspartate Aminotransferase 27 IU/L (17-59); BUN Creatinine Ratio 20.4 (6-22); Bilirubin Total 0.5 mg/dL (0.2-1.3); Blood Urea Nitrogen 34 mg/dL (9-20); Calcium 9.1 mg/dL (8.4-10.2); Carbon Dioxide 24 mmol/L (22-32); Chloride 105 mmol/L (98-107); Estimated Glomerular Filt Rate 39.9 mL/min (>60); Globulin 2.7 g/dL (1.7-4.1); Glucose 100 mg/dL (80-110); HEMOLYSIS < 15 (0-50); Potassium 4.8 mmol/L (3.4-5.1); Sodium 136 mmol/L (137-145); Total Protein 6.6 g/dL (6.3-8.2)
[2019-10-28 19:56] LABS: C-Reactive Protein Quant < 0.5 mg/dL (<1.0)
[2019-10-28 19:57] LABS: NT-proBNP (BNP-Adult 18+) 2040 pg/mL (<450)
[2019-10-28 20:18] LABS: Prostate Specific Antigen 10.5 ng/mL (0.10-4.00); TSH w/ Reflex to FT4 1.08 uIU/mL (0.47-4.68)
== END ==
PROVIDERS: Family Provider Internal Medicine; PCP Internal Medicine; Visit Provider Internal Medicine
DX: M35.3 Polymyalgia rheumatica (principal); I48.91 Unspecified atrial fibrillation; R97.20 Elevated prostate specific antigen [PSA]; R53.83 Other fatigue; I50.9 Heart failure, unspecified
CPT/HCPCS: 80053; 83880; 84153; 84443; 86140

== ENCOUNTER → 2019-11-09 07:33 | Outpatient (CLI) | payer MEDICARE, OTHER, SELFPAY ==
--- NOTE | 2019-11-09 07:50 | DI.ECHO.S_ITS ---
Echocardiogram Report + + :Name: CHILANGO RUCKER Study Date: 11/09/2019 Height: 73 in : :[facility] Weight: 236 lb: : Gender: Male BSA: 2.3 m2 : :: 1940 Age: 79 yrs BP: 95/60 mmHg: :Reason For Study: HEART FAILURE : : Performed By: Yovani Murphy : :Referring: NIA MENA : + + Interpretation Summary The ejection fraction is estimated to be 20-25%. There is severe global hypokinesis of the left ventricle. The left atrium is severely dilated. There is trace mitral regurgitation. There is trace tricuspid regurgitation. There is trace aortic regurgitation. Procedure: A two-dimensional transthoracic echocardiogram with color flow and Doppler was performed. The study quality was technically adequate. There is no prior echocardiogram noted for this patient. The subcostal views were not obtained due to abdominal pain. The patient was in atrial fibrillation with rapid ventricular response during the exam with a heart rate exceeding 100 bpm. The patient had a heart rate of 94-114 beats per minute. Left Ventricle: The left ventricle is normal in size. There is normal left ventricular wall thickness. The ejection fraction is estimated to be 20-25%. There is severe global hypokinesis of the left ventricle. There is mid anteroseptal wall akinesis. Right Ventricle: The right ventricle is at the upper limits of normal in size. Right ventricular systolic function is mild to moderately reduced. Atria: The left atrium is severely dilated. Right atrial size is normal. The interatrial septum is intact with no evidence for an atrial septal defect. Mitral Valve: There is mild mitral annular calcification. The mitral valve leaflets are slightly calcified. There is trace mitral regurgitation. Aortic Valve: The aortic valve is trileaflet. The aortic valve is mildly calcified. The aortic valve opens well. There is trace aortic regurgitation. Tricuspid Valve: The tricuspid valve is normal in structure and function. There is trace tricuspid regurgitation. Right ventricular systolic pressure is estimated to be 15 mmHg plus the clinically estimated CVP which cannot be estimated on this exam. Pulmonic Valve: The pulmonic valve is not well seen, but is grossly normal. There is trace pulmonic regurgitation. Great Vessels: The aortic root is normal size. The ascending aorta is moderately enlarged. The pulmonary artery is normal size. The inferior vena cava was not visualized. Pericardium/ Pleura There is no pericardial effusion. There is no pleural effusion. MMode/2D Measurements & Calculations LVIDd: 4.6 cm LVOT diam: 2.1 cm LVIDs: 3.8 cm Ao root diam: 4.0 cm FS: 17.5 % asc Aorta Diam: 4.5 cm EPSS: 2.3 cm Ao Arch Diam (Prox Trans): 3.1 cm IVSd: 1.0 cm LVPWd: 0.83 cm LV brock. diameter/BSA (cm/m^2): 2.0 LV sys. diameter/BSA (cm/m^2): 1.6 LA dimension: 4.2 cm RA long axis: 6.4 cm LA A2 area: 34.9 cm2 RA area: 21.4 cm2 LA A4 area: 37.5 cm2 RA vol: 60.4 ml LA length (vol): 7.6 cm RA : 26.2 ml/m2 LA vol: 146.1 ml LA vol index: 63.3 ml/m2 RVD1 (basal): 4.1 cm RVD2 (mid): 4.2 cm TAPSE: 0.94 cm Doppler Measurements & Calculations Ao V2 max: 112.5 cm/sec LVOT Max Thien: 74.5 cm/sec Ao V2 mean: 83.8 cm/sec LV V1 max P.3 mmHg Ao max P.2 mmHg LV V1 VTI: 10.4 cm Ao mean P.1 mmHg MEGAN(I,D): 2.0 cm2 Ao V2 VTI: 18.7 cm MEGAN(V,D): 2.3 cm2 sev ratio: 0.56 MEGAN indexed to BSA (cm^2/m^2): 0.85 MV E max thien: 61.3 cm/sec TR max thien: 191.1 cm/sec MV A max thien: 1.1 cm/sec TR max P.6 mmHg MV E/A: 56.7 PA V2 max: 51.8 cm/sec Med Peak E' Thien: 4.7 cm/sec PA V2 mean: 40.6 cm/sec E/E' med: 13.0 PA mean P.69 mmHg Lat Peak E' Thien: 6.3 cm/sec PA pr(Accel): 29.3 mmHg E/E' lat: 9.7 E/e' average: 11.4 MV dec time: 0.15 sec SV(LVOT): 36.6 ml Reading Physician:02:11 PM
== END ==
PROVIDERS: Family Provider Internal Medicine; PCP Internal Medicine; Referring Provider Internal Medicine; Visit Provider Internal Medicine
DX: I50.9 Heart failure, unspecified (principal); I77.89 Other specified disorders of arteries and arterioles; I48.91 Unspecified atrial fibrillation
CPT/HCPCS: 93306

== ENCOUNTER → 2020-02-21 19:22 | Outpatient (ROUT) | payer MEDICARE, OTHER, SELFPAY ==
[2020-02-21 19:40] LABS: Add Manual Diff / Slide Review NO; Basophils Absolute Auto 0 /uL (0-100); Basophils Percent Auto 0.9 % (0-2); Eosinophils Absolute Auto 200 /uL (0-450); Eosinophils Percent Auto 3.4 % (2-4); Hematocrit 43.2 % (41-53); Hemoglobin 14.3 g/dL (13.5-17.5); Lymphocytes Absolute Auto 1100 /uL (1100-4500); Lymphocytes Percent Auto 18.6 % (25-40); Mean Corpuscular Hemoglobin 31.4 PG (26-34); Mean Corpuscular Volume 95.1 fL (80-100); Monocytes Absolute Auto 600 /uL (0-900); Monocytes Percent Auto 10.3 % (3-14); Neutrophils Absolute Auto 3800 /uL (1500-7000); Neutrophils Percent Auto 66.8 % (50-75); Platelet Count 222 X10^3/uL (150-400); Red Blood Cell Count 4.54 X10^6/uL (4.5-5.9); Red Cell Distribution Width 13.5 % (11.6-14.8); White Blood Cell Count 5.7 X10^3/uL (4.5-11.0)
[2020-02-21 19:54] LABS: Alanine Aminotransferase 45 IU/L (<50); Albumin 3.7 g/dL (3.5-5.0); Albumin Globulin Ratio 1.4 (1.0-2.8); Alkaline Phosphatase 85 U/L (38-126); Aspartate Aminotransferase 31 IU/L (17-59); BUN Creatinine Ratio 18.4 (6-22); Bilirubin Total 0.9 mg/dL (0.2-1.3); Blood Urea Nitrogen 28 mg/dL (9-20); Calcium 8.7 mg/dL (8.4-10.2); Carbon Dioxide 29 mmol/L (22-32); Chloride 104 mmol/L (98-107); Cholesterol 170 mg/dL (140-199); Estimated Glomerular Filt Rate 44.5 mL/min (>60); Globulin 2.7 g/dL (1.7-4.1); Glucose 101 mg/dL (80-110); HDL Cholesterol 66 mg/dL (40-60); HEMOLYSIS 18 (0-50); LDL Cholesterol Calculated 85 mg/dL (<100); Potassium 5.1 mmol/L (3.4-5.1); Sodium 136 mmol/L (137-145); Total Protein 6.4 g/dL (6.3-8.2); Triglycerides 97 mg/dL (35-150)
[2020-02-21 19:58] LABS: Hemoglobin A1C% w Est Avg Glu 5.6 % (4.0-6.0)
[2020-02-21 20:24] LABS: TSH w/ Reflex to FT4 0.86 uIU/mL (0.47-4.68)
== END ==
PROVIDERS: Family Provider Internal Medicine; PCP Internal Medicine; Visit Provider Internal Medicine
DX: I50.9 Heart failure, unspecified (principal); R73.01 Impaired fasting glucose; E78.2 Mixed hyperlipidemia
CPT/HCPCS: 80053; 80061; 83036; 84443; 85025

== ENCOUNTER → 2020-03-26 07:54 | Outpatient (CLI) | payer MEDICARE, OTHER, SELFPAY ==
--- NOTE | 2020-03-26 07:55 | DI.RAD.S_ITS ---
PROCEDURE: XR LUMBAR SPINE MIN 4V INDICATIONS: low back pain TECHNIQUE: 5 views of the lumbar spine were acquired. COMPARISON: [facility], CT, CT ABDOMEN PELVIS W CON, 10/29/2017, 12:52. [facility], CR, XR LUMBAR SPINE 2 OR 3 VIEWS, 04/01/2018, 9:00. [facility], MR, MR LUMBAR SPINE WO CON, 01/25/2019, 8:42. FINDINGS: Bones: 6 nonrib-bearing vertebrae are present, variant. Minimal scoliosis. Mild anterior listhesis of L5 on L6 measuring 1 cm. Moderate to severe multilevel degenerative change in DDD. Multilevel bony neural foraminal narrowing most pronounced at L4-L5, and L5-L6. Large osteophyte at left L2-L3. No vertebral body compression fractures. No suspicious bony lesions. Bones appear osteopenic. Soft tissues: Overlying bowel gas pattern is normal. No suspicious soft tissue calcifications. Left abdomen surgical clips. Calcified atherosclerotic plaque in the abdominal aorta. IMPRESSION: 1. No compression fracture. Bones appear osteopenic. 2. Overall moderate to severe multilevel degenerative change and DDD. There is neural foraminal narrowing in the inferior lumbar spine. Overall findings appear similar to the prior exams. -if clinically indicated repeat MRI of the lumbar spine may be helpful. Dictated by: En Oconnell M.D. on 03/26/2020 at 9:23 Approved by: En Oconnell M.D. on 03/26/2020 at 9:32
== END ==
PROVIDERS: Family Provider Internal Medicine; PCP Internal Medicine; Referring Provider Internal Medicine; Visit Provider Physical Medicine & Rehabilitation
DX: M47.27 Other spondylosis with radiculopathy, lumbosacral region (principal); M51.16 Intervertebral disc disorders with radiculopathy, lumbar region; I48.91 Unspecified atrial fibrillation
CPT/HCPCS: 72110; 99214

== ENCOUNTER → 2020-04-02 08:32 | Outpatient (CLI) | payer MEDICARE, OTHER, SELFPAY ==
[2020-04-02 11:12] LABS: COVID19 -Nasal RAPID Negative (Negative)
== END ==
PROVIDERS: Family Provider Internal Medicine; PCP Internal Medicine; Visit Provider Physician Assistant
DX: Z11.59 Encounter for screening for other viral diseases (principal)
CPT/HCPCS: 87635

== ENCOUNTER 2020-04-03 08:33 | Outpatient (CLI) | payer MEDICARE, OTHER, SELFPAY ==
[2020-04-03] VITALS (9 sets, daily range): BP systolic 96–144; BP diastolic 71–102; PULSE 86–116; RESP 15–22; TEMP 36.2; O2SAT 93–99
--- NOTE | 2020-04-03 08:35 | DI.RAD.S_ITS ---
PROCEDURE: PAIN L INTERLAMINAR/CAUDAL INJ INDICATIONS: SPONDYLOSIS COMPARISON: [facility], CR, XR LUMBAR SPINE MIN 4V, 03/26/2020, 8:06. FINDINGS: Fluoroscopic spot filming was performed to verify placement of a spinal needle at the L4-L5 level, as labeled on the films. Appropriate location of the needle tip was confirmed by injection of iodinated contrast. IMPRESSION: Intraprocedural examination within normal limits. Dictated by: Pillo Pollack M.D. on 04/03/2020 at 9:13 Approved by: Pillo Pollack M.D. on 04/03/2020 at 9:13
[2020-04-03] MEDS: fentaNYL 100 MCG/2 ML INJ 50 MCG IV (09:21)
[2020-04-03] MEDS: MIDAZOLAM 5 MG/5 ML VIAL IV (09:21)
[2020-04-03] MEDS: IOPAMIDOL 15 ML VIAL 3 ML INJ (09:24)
[2020-04-03] MEDS: BUPIVACAINE 0.25% (PF) VIAL 2 ML INJ (09:24)
[2020-04-03] MEDS: DEXAMETHASONE 10 MG/ML VIAL 20 MG INJ (09:25)
[2020-04-03] MEDS: BETAMETHASONE 30 MG/5 ML MDV 6 MG INJ (09:25)
--- NOTE | 2020-04-03 09:34 | P.PCN_ITS ---
Date/Time/Diagnoses Date of procedure: 04/03/20 Time of procedure: 09:34 Pre-procedure diagnosis: 1. HNP WITH RADICULAR FEATURES, 2. MULTILEVEL CENTRAL STENOSIS, Post-procedure diagnosis: same Procedure Notes Procedure: 1. FLUOROSCOPICALLY GUIDED CONTRAST CONTROLLED INTERLAMINAR EPIDURAL STEROID INJECTION -L4/5 Indications: Artemio is referred by Dr. Montejo for treatment of Bilateral Foraminal Stenosis R>L LE symptoms. Physician: Chauncey Malin Total Fluoroscopy time (seconds): 6 Total sedation minutes: 9 Complications: none Procedure in detail & Post-procedure care: FINDINGS Multilevel Central Spinal Stenosis with Nerve Root Compression DESCRIPTION OF PROCEDURE Fluoroscopically guided, contrast-controlled L4/5 translaminar epidural steroid injection. Following review of allergy and review of potential side effects and complications, including, but not necessarily limited to, infection, allergic reaction, local tissue breakdown, temporary as well as permanent nerve injury, paralysis, stroke and possible , the patient indicated that the patient understood and agreed to proceed. An informed consent document was signed by the patient, witnessed by a nurse, and placed in the patient's chart. Additionally, other treatment options including modalities, medications, and physical therapy were reviewed with the patient. After review of previous anaesthesic history and IV conscious sedation the patient was deemed safe to proceed with today?s procedure with IV conscious sedation as ASA class II designation. Safety time-out was performed to confirm patient ID, procedure to be performed and site of procedure. IV sedation was accomplished with a combination of 2mg of Versed and 50mcg of Fentanyl was administered by the RN after DO order, titrated to patient comfort during the course of the procedure while the patient remained responsive to all verbal commands In the prone position, following sterile prep and drape of the lumbar region, the L4/5 translaminar space was identified fluoroscopically. The skin was anesthetized via a 25-gauge, 1.5inch needle with 1% lidocaine solution. At this point, a 22-gauge short bevel spinal needle was atraumatically introduced and advanced under fluoroscopic guidance into the region of the L4/5 translaminar space. Depth was confirmed on lateral view. Radiological data, including multiple fluoroscopic views of the lumbar spine, reveal a spinal needle at the L4/5 translaminar space. Lateral views then show placement of the needle in the epidural space. Subsequent views show contrast material flowing superiorly and inferiorly in the epidural space. No vascular or intrathecal uptake is observed. At this point, using loss of resistance technique with saline and air, the epidural space was entered. This was confirmed following negative aspiration with injection of approximately 1.5cc of Isovue 200, showing excellent epidural flow without vascular or intrathecal uptake. At this point, 1cc of 1% lidocaine solution combined with 3cc or 20mg of dexamethasone and 6mg betamethasone was injected without incident. The patient tolerated the procedure well without signs or symptoms of complic ations prior to transfer to the recovery area continued monitoring without incident. The patient was then transferred to the recovery area where they were observed for an appropriate period of time after the injection. The patient reported a VAS score of 6 prior to the procedure and a post- procedure VAS of 0. POST OP INSTRUCTIONS The patient was provided a Pain Log to continue to record their response to the target-specific procedure prior to follow-up visit with their referring physician. Additionally, specific post-injection care instructions and a contact number to our office were provided if concerns arise regarding possible complications associated with the procedure are suspected.
== END 2020-04-03 09:55 | disposition home or self-care (01) ==
LOC: RAD 08:35
PROVIDERS: Family Provider Internal Medicine; PCP Internal Medicine; Referring Provider Internal Medicine; Visit Provider Physical Medicine & Rehabilitation
DX: M47.817 Spondylosis without myelopathy or radiculopathy, lumbosacral region (principal); M51.26 Other intervertebral disc displacement, lumbar region; M47.27 Other spondylosis with radiculopathy, lumbosacral region
CPT/HCPCS: 62323; J0702; J1100; J2250; J3010

== ENCOUNTER → 2020-08-13 09:25 | Outpatient (CLI) | payer MEDICARE, OTHER, SELFPAY ==
[2020-08-13 10:20] LABS: COVID19 -Nasal RAPID Negative (Negative)
== END ==
PROVIDERS: Family Provider Internal Medicine; PCP Internal Medicine; Visit Provider Physical Medicine & Rehabilitation
DX: Z20.822 Contact with and (suspected) exposure to COVID-19 (principal)
CPT/HCPCS: 87635; C9803

== ENCOUNTER 2020-08-14 13:27 | Outpatient (CLI) | payer MEDICARE, OTHER, SELFPAY ==
[2020-08-14] VITALS (9 sets, daily range): BP systolic 92–152; BP diastolic 66–99; PULSE 72–101; RESP 12–20; TEMP 35.8; O2SAT 93–98
--- NOTE | 2020-08-14 13:29 | DI.RAD.S_ITS ---
PROCEDURE: PAIN L/S FACET INJ/BLK 1ST EMMETT COMPARISON: [facility], , PAIN L/S FACET INJ/BLK 1ST EMMETT, 04/28/2019, 10:36. INDICATIONS: SPONDYLOSIS FINDINGS: On these intraprocedural images, bilateral spinal needles are seen at the L3, L4, and L5 levels, as labeled on the films. The appropriate positions of the tips of the needles were confirmed with injection of a small amount of iodinated contrast. IMPRESSION: Intraprocedural examination within normal limits. Dictated by: Pillo Pollack M.D. on 08/14/2020 at 14:30 Approved by: Pillo Pollack M.D. on 08/14/2020 at 14:31
[2020-08-14] MEDS: MIDAZOLAM 5 MG/5 ML VIAL IV (14:21)
[2020-08-14] MEDS: fentaNYL 100 MCG/2 ML INJ 50 MCG IV (14:21)
[2020-08-14] MEDS: IOPAMIDOL 15 ML VIAL 3 ML INJ (14:26)
[2020-08-14] MEDS: LIDOCAINE 1% 20 ML 10 ML INJ (14:26)
[2020-08-14] MEDS: BUPIVACAINE 0.5% (PF) VIAL 5 ML INJ (14:26)
--- NOTE | 2020-08-14 14:39 | P.PCN_ITS ---
Date/Time/Diagnoses Date of procedure: 08/14/20 Time of procedure: 14:39 Pre-procedure diagnosis: 1. FACET ARTHROPATHY Post-procedure diagnosis: same Procedure Notes Procedure: 1. BILATERAL L3, L4 AND L5 DIAGNOSTIC MB BLOCKS Indications: Artemio is referred by Dr. Montejo for treatment of Bilateral Axial LBP. Physician: Chauncey Malin Total Fluoroscopy time (seconds): 12 Total sedation minutes: 16 Complications: none Procedure in detail & Post-procedure care: DESCRIPTION OF PROCEDURE Fluoroscopically guided, contrast-controlled bilateral L3, L4 and L5 medial branch blocks with 0.5cc of 0.5% Marcaine. Following review of allergy and review of potential side effects and complications, including, but not necessarily limited to, infection, allergic reaction, local tissue breakdown, nerve injury, paralysis, stroke and possible , the patient indicated that the patient understood and agreed to proceed. An informed consent document was signed by the patient, witnessed by a nurse, and placed in the patient's chart. After review of previous anaesthesic history and IV conscious sedation the patient was deemed safe to proceed with today's procedure with IV conscious sedation as ASA class II designation. Safety time-out was performed to confirm patient ID, procedure to be performed and site of procedure. IV sedation was accomplished with a combination of 3mg of Versed and 50mcg of Fentantyl was administered by the RN after DO order, titrated to patient comfort during the course of the procedure while the patient remained responsive to all verbal commands In the prone position, following sterile prep and drape of the lumbar region, the right L3, L4 and L5 anatomical location of the medial branch of the dorsal ramus was identified fluoroscopically. Subsequently an anesthetic skin wheal using 1% lidocaine solution was initiated at each of the anatomical spots. Subsequently then a 22-gauge 3.5-inch spinal needle was atraumatically introduced and advanced under fluoroscopic guidance at each of the corresponding sites at the right L3, L4 and L5 MB. After negative aspiration, 0.2cc of Isovue 200 was injected, confirming placement without vascular or intrathecal uptake. Subsequently then 0.5cc of 0.5% Marcaine solution was injected at each of the corresponding sites at the right L3, L4 and L5 medial branch locations. The identical procedure was replicated on the left. The patient tolerated the procedure well without signs or symptoms of complications. The patient tolerated the procedure well without signs or symptoms of complications prior to transfer to the recovery area continued monitoring without incident. Post-procedure, the patient was monitored initiating provocative activities to measure the amount of relief from block of the facetogenic pain. The patient reported a VAS of 7 prior to the procedure and a post-procedure VAS of 1. It has been a pleasure to assist in the diagnostic and therapeutic care of your patient. POST OP INSTRUCTIONS The patient was provided with a Pain Log to complete over the next several hours and subsequent days prior to the patient's follow up with the ordering physician. If the patient has press supervisor relief to the solution applied, then they may be a candidate for medial branch rhizotomy. The patient is aware, was provided, once again, with a Pain Log and will follow up with the referring physician for review and clinical correlation
== END 2020-08-14 15:05 | disposition home or self-care (01) ==
LOC: RAD 13:28
PROVIDERS: Family Provider Internal Medicine; PCP Internal Medicine; Referring Provider Physical Medicine & Rehabilitation; Visit Provider Physical Medicine & Rehabilitation
DX: M47.816 Spondylosis without myelopathy or radiculopathy, lumbar region (principal)
CPT/HCPCS: 64493; 64494; 99152; J2250; J3010

== ENCOUNTER → 2020-09-04 18:40 | Outpatient (ROUT) | payer MEDICARE, OTHER, SELFPAY ==
[2020-09-04 19:20] LABS: Add Manual Diff / Slide Review NO; Basophils Absolute Auto 0 /uL (0-100); Basophils Percent Auto 0.5 % (0-2); Eosinophils Absolute Auto 200 /uL (0-450); Eosinophils Percent Auto 3.1 % (2-4); Hematocrit 43.6 % (41-53); Hemoglobin 14.8 g/dL (13.5-17.5); Lymphocytes Absolute Auto 1000 /uL (1100-4500); Lymphocytes Percent Auto 15.7 % (25-40); Mean Corpuscular HGB Conc 33.9 % (30-36); Mean Corpuscular Hemoglobin 31.7 PG (26-34); Mean Corpuscular Volume 93.6 fL (80-100); Monocytes Absolute Auto 700 /uL (0-900); Monocytes Percent Auto 10.3 % (3-14); Neutrophils Absolute Auto 4500 /uL (1500-7000); Neutrophils Percent Auto 70.4 % (50-75); Platelet Count 219 X10^3/uL (150-400); Red Blood Cell Count 4.66 X10^6/uL (4.5-5.9); Red Cell Distribution Width 13.5 % (11.6-14.8); White Blood Cell Count 6.4 X10^3/uL (4.5-11.0)
[2020-09-04 19:35] LABS: BUN Creatinine Ratio 15.6 (6-22); Blood Urea Nitrogen 23 mg/dL (9-20); Calcium 9.2 mg/dL (8.4-10.2); Carbon Dioxide 25 mmol/L (22-32); Chloride 103 mmol/L (98-107); Cholesterol 201 mg/dL (140-199); Estimated Glomerular Filt Rate 46.1 mL/min (>60); Glucose 102 mg/dL (80-110); HDL Cholesterol 59 mg/dL (40-60); HEMOLYSIS < 15 (0-50); LDL Cholesterol Calculated 116 mg/dL (<100); Phosphorous 3.2 mg/dL (2.3-3.7); Potassium 4.9 mmol/L (3.4-5.1); Sodium 136 mmol/L (137-145); Triglycerides 132 mg/dL (35-150)
[2020-09-04 20:03] LABS: TSH w/ Reflex to FT4 0.85 uIU/mL (0.47-4.68)
[2020-09-05 05:43] LABS: Parathyroid Hormone Int 98 pg/mL (15-65)
== END ==
PROVIDERS: Family Provider Internal Medicine; PCP Internal Medicine; Visit Provider Internal Medicine
DX: N18.30 Chronic kidney disease, stage 3 unspecified (principal); E03.9 Hypothyroidism, unspecified; E78.2 Mixed hyperlipidemia
CPT/HCPCS: 80048; 80061; 83970; 84100; 84443; 85025

== ENCOUNTER → 2020-10-29 09:32 | Outpatient (CLI) | payer MEDICARE, OTHER, SELFPAY ==
[2020-10-29 14:47] LABS: COVID19 -Nasal RAPID Negative (Negative)
== END ==
PROVIDERS: Family Provider Internal Medicine; PCP Internal Medicine; Visit Provider Physical Medicine & Rehabilitation
DX: Z20.822 Contact with and (suspected) exposure to COVID-19 (principal)
CPT/HCPCS: 87635; C9803

== ENCOUNTER 2020-10-30 07:15 | Outpatient (CLI) | payer MEDICARE, OTHER, SELFPAY ==
[2020-10-30] VITALS (11 sets, daily range): BP systolic 78–132; BP diastolic 59–88; PULSE 70–96; RESP 13–19; TEMP 36; O2SAT 95–99
--- NOTE | 2020-10-30 07:19 | DI.RAD.S_ITS ---
PROCEDURE: PAIN L/S MED/LAT N RFA BILAT INDICATIONS: Bilateral L3-L4 and L5 medial branch RFA COMPARISON: [facility], XA, PAIN L/S FACET INJ/BLK 1ST EMMETT, 08/14/2020, 14:26. FINDINGS: Fluoroscopic spot filming was performed to verify placement of spinal needles on the right and on the left at the L3, L4, and L5 level(s), as labeled on the films. IMPRESSION: Intraprocedural examination within normal limits. Dictated by: Pillo Pollack M.D. on 10/30/2020 at 10:53 Approved by: Pillo Pollack M.D. on 10/30/2020 at 10:54
[2020-10-30] MEDS: fentaNYL 100 MCG/2 ML INJ 50 MCG IV (08:20)
[2020-10-30] MEDS: MIDAZOLAM 5 MG/5 ML VIAL IV (08:20)
[2020-10-30] MEDS: BUPIVACAINE 0.5% (PF) VIAL 5 ML INJ (08:29)
[2020-10-30] MEDS: LIDOCAINE 1% 20 ML INJ (08:29)
--- NOTE | 2020-10-30 08:57 | P.PCN_ITS ---
Date/Time/Diagnoses Date of procedure: 10/30/20 Time of procedure: 08:57 Pre-procedure diagnosis: 1. RECALCITRANT FACET ARTHROPATHY Post-procedure diagnosis: same Procedure Notes Procedure: 1. BILATERAL L3, L4 AND L5 MEDIAL BRANCH RADIOFREQUENCY NEUROTOMY Indications: Artemio is referred by Dr. Montejo for treatment of facet arthropathy. Physician: Chauncey Mlain Total Fluoroscopy time (seconds): 20 Total sedation minutes: 30 Complications: none Procedure in detail & Post-procedure care: DESCRIPTION OF PROCEDURE Bilateral L3, L4 and L5 medial branch radiofrequency neurotomy The patient is well known to this clinic having undergone previous facet injections with good but temporary relief. The patient has experienced appropriate, concordant relief with previous facet and median branch blocks but the patient's pain has been recalcitrant to further conservative measures. Therefore, based upon the patient's relief and persistent symptoms, the patient is considered an appropriate candidate for facet rhizotomy. All of the patient's questions regarding the risks versus benefits of the procedure, including, but not limited to, bleeding, infection, temporary as well as lasting nerve injury, paralysis, stroke, and , as well treatment alternatives were answered to satisfaction. After obtaining informed consent, denial of pertinent drug allergies, as well as being made aware of the potential risks of bleeding, infection, spinal cord trauma, paralysis, temporary and permanent nerve damage, seizure, stroke, and possible , the patient was brought to the fluoroscopy suite and positioned prone on the fluoroscopy table. The lumbar region was prepped with Betadine and covered with a fenestrated drape in the usual sterile fashion. Appropriate monitors applied including pulse oxime ter, pulse, and blood pressure for regular monitoring throughout the procedure. After review of previous anaesthesic history and IV conscious sedation the patient was deemed safe to proceed with today's procedure with IV conscious sedation as ASA class II designation. Safety time-out was performed to confirm patient ID, procedure to be performed and site of procedure. IV sedation was accomplished with a combination of 2mg of Versed and 50mcg of Fentanyl administered by the RN after DO order, titrated to patient comfort during the course of the procedure while the patient remained responsive to all verbal commands. After local infiltration using 1% lidocaine, under fluoroscopic guidance, a 10- cm RF insulated needle with a 10-mm active tip was positioned parallel to the junction of the right the superior articulating process where the L5 medial branch resides. Needle placement was confirmed with motor stimulation of .5v on the right which produced local stimulation without radicular component. The stimulation was then increased to 2v with, once again, only local multifidus stimulation without radicular component. The needle was then removed and the identical procedure was performed along the length of the right L4 medial branch with motor stimulation at .7v on the right. The identical procedure was once again performed along the length of the right L3 and medial branch with motor stimulation of .5v on the right. The medial branches were then anesthetised with 0.5% marcaine. This was then followed by two discreet lesions performed at 80 degrees Celsius for 90 seconds each. The identical procedures were repeated on the left. The patient tolerated the procedure well without signs or symptoms of complications prior to transfer to the recovery area continued monitoring without incident. The patient was then transferred to the recovery area where they were observed for an appropriate period of time after the injection. The patient reported a VAS score of 9 prior to the procedure and a post-procedure VAS of 0. POST OP INSTRUCTIONS The patient was provided a Pain Log to continue to record the patient's response to the target-specific procedure prior to the patient's follow-up visit with the referring physician. Additionally, specific post-injection care instructions and a contact number to our office were provided if concerns arise regarding possible complications associated with the procedure are suspected.
--- NOTE | 2020-10-30 09:45 | PC.NURSE ---
Pt drowsy and woozy upon arrival from procedure. hypotensive. improved nad back to baseline BP at discharge. stands and ambulates on his won without assistance. baseline gait noted. at D/C. Pt feels clear headed
== END 2020-10-30 09:25 | disposition home or self-care (01) ==
LOC: RAD 07:19
PROVIDERS: Family Provider Internal Medicine; PCP Internal Medicine; Referring Provider Internal Medicine; Visit Provider Physical Medicine & Rehabilitation
DX: M47.816 Spondylosis without myelopathy or radiculopathy, lumbar region (principal)
CPT/HCPCS: 64635; 64636; 99152; 99153; J2250; J3010